=== PATIENT | male | born 1955 | race African-American/Black ===

== ENCOUNTER 2020-12-17 13:54 | Emergency (ER) | payer MEDICARE, OTHER ==
[~2020-12-17] VITALS: Ht 165.1 cm; Wt 90.9 kg
[~2020-12-17 13:54] MED LIST: IBUP-2759 PO; RISP1TAB48 PO; SERT-158 PO
[2020-12-17 14:04] VITALS: BP 130/79
[2020-12-17] MEDS ORDERED: IBUPROFEN 600 MG TABLET PO ONE (14:30)
== END 2020-12-17 14:37 | disposition home or self-care (01) ==
LOC: EMS 13:56
DX: M13.861 Other specified arthritis, right knee (principal); F32.9 Major depressive disorder, single episode, unspecified; F20.9 Schizophrenia, unspecified; F17.210 Nicotine dependence, cigarettes, uncomplicated
CPT/HCPCS: 99282; Z7502; Z7610